=== PATIENT | female | born 1995 | race African-American/Black ===

== ENCOUNTER 2019-12-05 11:05 | Emergency (ER) | payer MEDICAID ==
[~2019-12-05] VITALS: Ht 149.9 cm; Wt 37.6 kg
[2019-12-05 11:14] VITALS: BP 106/71
[2019-12-05 11:51] LABS: Urine Bacteria FEW /hpf (None Seen); Urine Blood Negative /uL (Negative); Urine Mucus MANY (None Seen); Urine Specific Gravity 1.026 (1.001-1.035); Urine WBC 40 /hpf (0 - 5)
[2019-12-05 11:52] LABS: Basophils # (auto) 0 10 ^3/uL (0-0.2); Basophils % (auto) 1.9 % (0.0-2.0); Eosinophils # (auto) 0 10 ^3/uL (0-0.8); Hematocrit 38.1 % (36.0-46.0); Hemoglobin 12.1 g/dL (12.2-16.2); Lymphocytes # (auto) 0.7 10 ^3/uL (0.4-5.4); Lymphocytes % (auto) 28.6 % (10.0-50.0); Mean Corpuscular Hemoglobin 27.1 pg (28.0-32.0); Mean Corpuscular Hgb Conc. 31.7 g/dL (32.0-36.0); Mean Corpuscular Volume 85.3 fL (80.0-100.0); Monocytes # (auto) 0.2 10 ^3/uL (0-1.3); Monocytes % (auto) 8.8 % (0.0-12.0); Neutrophils # (auto) 1.4 10 ^3/uL (1.6-8.6); Neutrophils % (auto) 60.7 % (37.0-80.0); Nucleated Red Blood Cells % 0.2 %; Platelet Count (auto) 331 10^3/uL (140-450); Red Blood Cells 4.46 10^6/uL (4.0-5.20); Red Cell Distribution Width 16.5 % (11.8-14.3); White Blood Cell 2.3 10^3/uL (4.4-10.8)
[2019-12-05 12:05] LABS: Amphetamine Screen, Urine NEGATIVE (NEGATIVE); Barbiturate Scree,Urine NEGATIVE (NEGATIVE); Benzodiazephine Screen, Urine POSITIVE (NEGATIVE); Cannabinoid Screen, Urine POSITIVE (NEGATIVE); Cocaine Screen, Urine NEGATIVE (NEGATIVE); Opiate Scree,Urine NEGATIVE (NEGATIVE); Phencyclidine Screen, Urine NEGATIVE (NEGATIVE)
[2019-12-05 12:11] LABS: Alanine Aminotransferase 26 U/L (13-56); Albumin 4.3 g/dL (3.4-5.0); Anion Gap 7 (5-15); Blood Urea Nitrogen 14 mg/dL (7-18); Calcium 8.8 mg/dL (8.5-10.1); Carbon Dioxide 24 mmol/L (21-32); Chloride 108 mmol/L (98-107); Glucose 81 mg/dL (74-106); Potassium 3.5 mmol/L (3.5-5.1); Sodium 139 mmol/L (136-145)
[2019-12-05 12:16] LABS: Alkaline Phosphatase 51 U/L (45-117); Aspartate Aminotransferase 26 U/L (15-37); BUN/Creatinine Ratio 17.5; Bilirubin, Total 1.4 mg/dL (0.2-1.0); GFR African American 113 mL/min; GFR Non-African American 94 mL/min; Total Protein 8.2 g/dL (6.4-8.2)
[2019-12-05] MEDS ORDERED: KETOROLAC TROMETH 60MG/2ML VIAL IM ONE (13:00)
== END 2019-12-05 13:20 | disposition home or self-care (01) ==
LOC: ER 11:05
DX: N39.0 Urinary tract infection, site not specified (principal); R07.89 Other chest pain; H60.92 Unspecified otitis externa, left ear; D72.819 Decreased white blood cell count, unspecified; F41.9 Anxiety disorder, unspecified; J45.909 Unspecified asthma, uncomplicated; Z88.1 Allergy status to other antibiotic agents; Z88.0 Allergy status to penicillin
CPT/HCPCS: 36415; 71046; 80053; 80307; 81001; 81025; 84484; 85025; 93005; 96372; 99285; J1885